=== PATIENT | male | born 1975 | race Caucasian/White ===

== ENCOUNTER 2020-10-07 20:26 | Emergency (ER) | payer OTHER ==
[~2020-10-07] VITALS: Ht 190.5 cm; Wt 90.7 kg
[~2020-10-07 20:26] MED LIST: COLACE100 MG PO; CYCLOBENZAPRINE5 MG PO; NAPROSYN500 MG PO; NORCO 5-325 TA1 EACH PO; RITALIN5 MG PO
--- NOTE | 2020-10-08 00:23 | EKG ---
[facility] [address] [facility] [place], [place] [address] Signed Normal sinus rhythm Normal ECG No previous ECGs available Confirmed by VIDHYA MELCHOR MD ([id number]) on 10/08/2020 12:22:47 AM Electronically Signed By: VIDHYA MELCHOR MD 10/08/20 0023 PATIENT NAME: HEATHER LARSEN Electrocardiogram DATE OF : 75 PHYSICIAN: VIDHYA MELCHOR MD REPORT #: [id number] REPORT IS CONFIDENTIAL AND NOT TO BE RELEASED WITHOUT AUTHORIZATION
== END 2020-10-08 00:09 | disposition home or self-care (01) ==
LOC: ED 20:26
DX: R07.89 Other chest pain (principal); E16.2 Hypoglycemia, unspecified; E87.6 Hypokalemia
CPT/HCPCS: 70450; 71045; 80053; 83735; 84484; 85025; 93005; 93010; 96374; 99285-25; J1885; J7121

== ENCOUNTER 2021-11-05 09:43 | Emergency (ER) | payer OTHER ==
[~2021-11-05] VITALS: Ht 190.5 cm; Wt 90.7 kg
[2021-11-05] MEDS ORDERED: METOPROLOL SUCC25 MG PO (15:55)
--- NOTE | 2021-11-05 18:52 | EKG ---
[facility] [address] [facility] [place], [place] [address] Signed Atrial fibrillation with rapid ventricular response Abnormal ECG No previous ECGs available Confirmed by KUSUM GALICIA MD ([id number]) on 11/05/2021 6:52:33 PM Electronically Signed By: KUSUM GALICIA MD 11/05/211851 PATIENT NAME: HEATHER LARSEN Electrocardiogram DATE OF : 75 PHYSICIAN: KUSUM GALICIA MD REPORT #: [id number] REPORT IS CONFIDENTIAL AND NOT TO BE RELEASED WITHOUT AUTHORIZATION
--- NOTE | 2021-11-05 18:54 | EKG ---
[facility] [address] [facility] [place] [address] Signed Normal sinus rhythm Possible Left atrial enlargement Borderline ECG When compared with ECG of 05-NOV-2021 09:48, (Unconfirmed) Sinus rhythm has replaced Atrial fibrillation Vent. rate has decreased BY 49 BPM Confirmed by KUSUM GALICIA MD ([id number]) on 11/05/2021 6:54:22 PM Electronically Signed By: KUSUM GALICIA MD 11/05/21 1854 PATIENT NAME: HEATHER LARSEN Electrocardiogram DATE OF : 75 PHYSICIAN: KUSUM GALICIA MD REPORT #: [id number] REPORT IS CONFIDENTIAL AND NOT TO BE RELEASED WITHOUT AUTHORIZATION
== END 2021-11-05 17:00 | disposition home or self-care (01) ==
LOC: ED 09:43
DX: I48.0 Paroxysmal atrial fibrillation (principal)
CPT/HCPCS: 36415; 71045; 80053; 83735; 84484; 85025; 85379; 93005; 93010; 99152; 99285-25; J2060; J2704; J7030

== ENCOUNTER 2023-08-20 11:49 | Emergency (ER) | payer BC, OTHER ==
[~2023-08-20] VITALS: Ht 190.5 cm; Wt 104.3 kg
[~2023-08-20 11:49] MED LIST changes: +LISINOPRIL20 MG PO; +METOPROLOL SUCC25 MG PO
[2023-08-20 12:21] LABS: BASOPHILS 0.4 % (0-2); HEMATOCRIT 50.9 % (35.0-50.0); HEMOGLOBIN 17.5 g/dL (12.0-18.0); LYMPHOCYTES 35.4 % (24-44); MCH 30.4 (27-36); MCHC 34.3 g/dl (30-36); MCV 88.6 fl (81-99); MONOCYTES 10.2 % (0-12); PLATELET COUNT 263 K/uL (140-440); RBC 5.75 M/ul (4.3-5.7); RDW 13.1 (10.5-15.0)
[2023-08-20 12:32] LABS: ALBUMIN 4.3 g/dL (3.4-5.0); ALBUMIN/GLOBULIN RATIO 1.3 (1.1-2.4); BILIRUBIN, TOTAL 0.8 ng/dL (0.2-1.0); BUN/CREATININE RATIO 12.72 (6.0-28.6); CALCIUM 8.9 mg/dL (8.5-10.1); CREATININE, SERUM 1.1 mg/dL (0.70-1.30); MAGNESIUM 2.2 mg/dL (1.8-2.4); PROTEIN, TOTAL 7.6 g/dL (6.4-8.2)
[2023-08-20 15:11] VITALS: BP 123/95
--- NOTE | 2023-08-20 22:38 | EKG ---
[facility] [address] [place] [address] Signed Atrial fibrillation with rapid ventricular response Rightward axis Abnormal ECG When compared with ECG of 03-JUL-2023 13:08, Atrial fibrillation has replaced Sinus rhythm Vent. rate has increased BY 79 BPM Confirmed by Jody Saba MD () on 08/20/2023 10:38:12 PM Electronically Signed By: JODY SABA MD 08/20/23 2238 PATIENT NAME: HEATHER LARSEN Electrocardiogram DATE OF : 75 PHYSICIAN: JODY SABA MD REPORT #: [id number] REPORT IS CONFIDENTIAL AND NOT TO BE RELEASED WITHOUT AUTHORIZATION
== END 2023-08-20 15:12 | disposition home or self-care (01) ==
LOC: ED 11:49
PROVIDERS: Emergency Medicine
DX: I48.0 Paroxysmal atrial fibrillation (principal); I10 Essential (primary) hypertension; Z79.899 Other long term (current) drug therapy
CPT/HCPCS: 36415; 80053; 83735; 84484; 85025; 93005; 93010; J2704

== ENCOUNTER 2023-11-09 18:15 | Emergency (ER) | payer BC, OTHER ==
[~2023-11-09] VITALS: Ht 190.5 cm; Wt 102.2 kg
--- OUTSIDE RECORDS SUMMARY | ~2023-11-09 | XMS | Continuity of Care Document ---
Demographics + + + | Address | [address] | | | [place] [address] | + + + | Preferred Language | Unknown | + + + | Marital Status | | + + + | Alevism Affiliation | Unknown | + + + | Race | White | + + + | Ethnic Group | Unknown | + + + Author + + + | Author | [facility] | + + + | Organization | [facility] | + + + | Address | [address] | | | [place] [address] | + + + | Phone | | + + + Care Team Providers + + + + | Care Telephone Clerks Supervisor Name | Role | Phone | + + + + Unavailable | Unavailable | + + + + Unavailable | Unavailable | + + + + Allergies No information. Encounters No information. Functional Status No information. Immunizations No information. Medications No information. Problems + + + + | date | description | facility | + + + + | 2023-10-10 11:27:24 | Unspecified atrial | [facility] | | | fibrillation | | + + + + | 2023-10-10 11:27:24 | Acute bronchitis, | [facility] | | | unspecified | | + + + + | 2023-10-11 17:02:27 | Essential (primary) | [facility] | | | hypertension | | + + + + | 2023-10-11 17:02:27 | Unspecified atrial | [facility] | | | fibrillation | | + + + + | 2023-10-11 17:02:27 | Acute bronchitis, | [facility] | | | unspecified | | + + + + Procedures No information. Results/Labs No information. Social History +--------+ + + | date | description | facility | +--------+ + + Vital Signs No information."
[2023-11-09] MEDS ORDERED: FLECAINIDE ACE100 MG PO (18:24)
[2023-11-09] MEDS ORDERED: ELIQUIS5 MG PO (18:24)
[2023-11-09] MEDS ORDERED: ASPIRIN 81 MG CHEW PO ONE (18:30)
[2023-11-09] MEDS ORDERED: NITROGLYCERIN 0.4 MG SUBL SL PRN (18:30)
[2023-11-09 18:31] LABS: BASOPHILS 0.3 % (0-2); EOSINOPHILS 1.6 % (0-6); HEMATOCRIT 46.9 % (35.0-50.0); HEMOGLOBIN 15.8 g/dL (12.0-18.0); LYMPHOCYTES 32.5 % (24-44); MCH 30.1 (27-36); MCHC 33.7 g/dl (30-36); MCV 89.3 fl (81-99); MONOCYTES 7.5 % (0-12); NEUTROPHILS 58.1 % (39-80); PLATELET COUNT 244 K/uL (140-440); RBC 5.25 M/ul (4.3-5.7); RDW 13.2 (10.5-15.0)
[2023-11-09 18:39] LABS: INR 1.04 (0.80-1.30); PROTIME 13.2 Sec (11.2-14.2)
[2023-11-09 18:47] LABS: ALBUMIN/GLOBULIN RATIO 1.05 (1.1-2.4); ALKALINE PHOSPHATASE 83 U/L (46-116); ALT (SGPT) 47 U/L (14-59); AST (SGOT) 23 U/L (15-37); BILIRUBIN, TOTAL 0.4 ng/dL (0.2-1.0); BUN/CREATININE RATIO 13.15 (6.0-28.6); CALCIUM 9.5 mg/dL (8.5-10.1); CARBON DIOXIDE 31 mmol/L (21-32); CHLORIDE 101 mmol/L (98-107); CREATININE, SERUM 1.14 mg/dL (0.70-1.30); GLOMERULAR FILTRATION RATE,EST 79 mL/min (>60); PROTEIN, TOTAL 7.8 g/dL (6.4-8.2); UREA NITROGEN 15 mg/dL (7-18)
[2023-11-09 20:41] LABS: INFLUENZA B NAA NEGATIVE (NEGATIVE); RESPIRATORY SYNCYTIAL VIR NAA NEGATIVE (NEGATIVE)
[2023-11-09] MEDS ORDERED: CYCLOBENZAPRINE10 MG PO (20:59)
[2023-11-09 21:07] VITALS: BP 123/88
[2023-11-09] MEDS ORDERED: CYCLOBENZAPRINE HCL 10 MG HOME.PACK PO ONE (21:15)
--- NOTE | 2023-11-12 11:57 | EKG ---
[facility] [address] [facility] [place] [address] Signed Sinus bradycardia Otherwise normal ECG When compared with ECG of 20-AUG-2023 11:56, Sinus rhythm has replaced Atrial fibrillation Vent. rate has decreased BY 87 BPM Questionable change in QRS axis T wave amplitude has decreased in Anterior leads Confirmed by Coleman Morin MD ([id number]) on 11/12/2023 11:57:16 AM Electronically Signed By: COLEMAN MORIN 11/12/23 1157 PATIENT NAME: CHAVAHEATHER GALLARDO Electrocardiogram DATE OF : 75 PHYSICIAN: COLEMAN MORIN REPORT #: [id number] REPORT IS CONFIDENTIAL AND NOT TO BE RELEASED WITHOUT AUTHORIZATION
== END 2023-11-09 21:08 | disposition home or self-care (01) ==
LOC: ED 18:15
PROVIDERS: Emergency Medicine; Family Medicine
DX: R07.89 Other chest pain (principal); I10 Essential (primary) hypertension; I48.91 Unspecified atrial fibrillation; Z11.52 Encounter for screening for COVID-19; Z79.899 Other long term (current) drug therapy; Z79.01 Long term (current) use of anticoagulants
CPT/HCPCS: 36415; 71045; 80053; 83735; 83880; 84484; 85025; 85379; 85610; 87502; 93005; 93010; 99285-25; A9270; U0002

== ENCOUNTER 2025-04-15 21:28 | Emergency (ER) | payer OTHER ==
[~2025-04-15] VITALS: Ht 190.5 cm; Wt 108.0 kg
[~2025-04-15 21:28] MED LIST changes: +CYCLOBENZAPRINE10 MG PO; +ELIQUIS5 MG PO; +FLECAINIDE ACE100 MG PO
[2025-04-15] MEDS ORDERED: ASPIRIN 81 MG CHEW PO ONE (21:45)
[2025-04-15 22:05] LABS: BASOPHILS 0.3 % (0.2-1.2); EOSINOPHILS 2.2 % (0.8-7.0); LYMPHOCYTES 33.5 % (21.8-53.1); MCH 30.0 PG (25.7-32.2); MCHC 34.0 g/dL (32.3-36.5); MCV 88.1 fL (79.0-92.2); MONOCYTES 9.2 % (5.3-12.2); NEUTROPHILS 54.6 % (34.0-67.9); RBC 5.30 M/uL (4.63-6.08)
[2025-04-15 22:23] LABS: ALT (SGPT) 60 U/L (14-59); AST (SGOT) 19 U/L (15-37); GLOMERULAR FILTRATION RATE,EST 94 mL/min (>60); PROTEIN, TOTAL 7.1 g/dL (6.4-8.2); UREA NITROGEN 17 mg/dL (7-18)
[2025-04-16 00:26] VITALS: BP 143/93
--- NOTE | 2025-04-16 10:56 | EKG ---
[facility] [address] [facility] [place] [address] Signed Normal sinus rhythm Normal ECG When compared with ECG of 09-NOV-2023 18:17, No significant change was found Confirmed by Jakob Vasquez DO ([id number]) on 04/16/2025 10:56:15 AM Electronically Signed By: JAKOB VASQUEZ DO 04/16/25 1056 PATIENT NAME: CHAVAHEATHER GALLARDO Electrocardiogram DATE OF : 75 PHYSICIAN: JAKOB VASQUEZ DO REPORT #: [id number] REPORT IS CONFIDENTIAL AND NOT TO BE RELEASED WITHOUT AUTHORIZATION
== END 2025-04-16 00:27 | disposition home or self-care (01) ==
LOC: ED 21:28
PROVIDERS: Family Medicine
DX: R07.89 Other chest pain (principal); I10 Essential (primary) hypertension; I48.91 Unspecified atrial fibrillation; Z79.899 Other long term (current) drug therapy
CPT/HCPCS: 36415; 71045; 71260; 80053; 83735; 84484; 85025; 85379; 93005; 93010; 99285-25; A9270; Q9967

== ENCOUNTER 2025-04-25 17:32 | Emergency (ER) | payer OTHER ==
[~2025-04-25] VITALS: Ht 190.5 cm; Wt 107.0 kg
--- OUTSIDE RECORDS SUMMARY | 2025-04-25 17:39 | XMS ---
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 [place] VISIT COUNT (12 MO.) 2 [facility] TOTAL 2 NOTE: Visits indicate total known visits. ED/UCC VISIT TRACKING (12 MO.) 04/25/2025 17:33 [facility] [place] TYPE: Emergency COMPLAINT: - UNABLE TO SMILE, ARMS AND LEGS WEAK 04/15/2025 21:29 [facility] [place] TYPE: Emergency COMPLAINT: - CHEST PAIN DIAGNOSES: - Essential (primary) hypertension - Other chest pain - Other chest pain - Other skilled nursing (current) drug therapy - Precordial pain - Unspecified atrial fibrillation INPATIENT VISIT TRACKING (12 MO.) No inpatient visits to display in this time frame [email or web address]
[2025-04-25] MEDS ORDERED: BUPROPION XL150 MG PO (18:05)
[2025-04-25] MEDS ORDERED: LOSARTAN POTAS100 MG PO (18:05)
[2025-04-25] MEDS ORDERED: ACETAMINOPHEN 500 MG TAB PO ONE (18:15)
[2025-04-25] MEDS ORDERED: ASPIRIN 81 MG CHEW PO ONE (18:45)
[2025-04-25 18:48] LABS: BASOPHILS 0.6 % (0.2-1.2); EOSINOPHILS 2.5 % (0.8-7.0); LYMPHOCYTES 26.9 % (21.8-53.1); MCH 30.2 PG (25.7-32.2); MCHC 34.6 g/dL (32.3-36.5); MCV 87.1 fL (79.0-92.2); MONOCYTES 9.6 % (5.3-12.2); NEUTROPHILS 60.3 % (34.0-67.9); RBC 5.67 M/uL (4.63-6.08)
[2025-04-25 19:01] LABS: ALT (SGPT) 61 U/L (14-59); AST (SGOT) 18 U/L (15-37); GLOMERULAR FILTRATION RATE,EST 99 mL/min (>60); PROTEIN, TOTAL 7.1 g/dL (6.4-8.2); UREA NITROGEN 13 mg/dL (7-18)
[2025-04-25 20:10] VITALS: BP 162/101
--- NOTE | 2025-04-25 20:55 | EKG ---
[facility] [address] [facility] [address] [facility] [place] [address] Signed Normal sinus rhythm Normal ECG When compared with ECG of 15-APR-2025 21:29, Questionable change in QRS axis Confirmed by Jody Saba MD () on 04/25/2025 8:54:47 PM Electronically Signed By: JODY SABA MD 04/25/252054 PATIENT NAME: CHAVAHEATHER SAMI Electrocardiogram DATE OF : 75 PHYSICIAN: JODY SABA MD REPORT #: [id number] REPORT IS CONFIDENTIAL AND NOT TO BE RELEASED WITHOUT AUTHORIZATION
== END 2025-04-25 20:17 | disposition home or self-care (01) ==
LOC: ED 17:32
PROVIDERS: Emergency Medicine
DX: R07.9 Chest pain, unspecified (principal); I10 Essential (primary) hypertension; Z79.899 Other long term (current) drug therapy
CPT/HCPCS: 36415; 71045; 80053; 83735; 84484; 85025; 93005; 93010; 99285-25; A9270